=== PATIENT | male | born 1960 | race Two or more races ===

== ENCOUNTER → 2021-07-27 | Emergency (ER) | payer OTHER ==
[~2021-07-27] VITALS: Ht 172.7 cm; Wt 75.3 kg
[~2021-07-27] MED LIST: METFORMIN HCL500 MG
== END | disposition home or self-care (01) ==
LOC: ER 13:35
DX: U07.1 COVID-19 (principal); R03.0 Elevated blood-pressure reading, without diagnosis of hypertension